=== PATIENT | female | born 1990 ===

== ENCOUNTER 2023-12-22 09:32 | Day surgery (SDC) | payer OTHER ==
[2023-12-22] MEDS ORDERED: CEFAZOLIN SODIUM 1,000 MG VIAL ONE (12:14)
[2023-12-22] MEDS ORDERED: BUPIVACAINE HCL/PF 0.5% 30ML ML ONE (12:42)
[2023-12-22] MEDS ORDERED: TYLENOL ARTHRI650 MG PO (13:41)
[2023-12-22] MEDS ORDERED: MIRALAX17 GM PO (13:41)
[2023-12-22] MEDS ORDERED: KETO10TA2 PO (13:41)
[2023-12-22] MEDS ORDERED: TRAMADOL HCL50 MG PO (13:41)
[2023-12-22] MEDS ORDERED: SUGAMMADEX SODIUM 200 MG/2 ML VIAL IV ONE ×4 (13:48→14:30)
[2023-12-22] MEDS ORDERED: CEFAZOLIN SODIUM 1,000 MG VIAL IV ONE (14:30)
[2023-12-22] MEDS ORDERED: BUPIVACAINE HCL 30 ML VIAL IJ ONE (14:30)
== END 2023-12-22 18:50 | disposition home or self-care (01) ==
LOC: CIR.AMB 09:32
PROVIDERS: ATTEND Surgery
DX: K42.0 Umbilical hernia with obstruction, without gangrene (principal); Z20.822 Contact with and (suspected) exposure to COVID-19